=== PATIENT | female | born 1945 | race Caucasian/White ===

== ENCOUNTER 2018-02-25 11:52 | Inpatient (IN) | payer MEDICARE ==
[~2018-02-25] VITALS: Ht 154.9 cm; Wt 84.5 kg
--- NOTE | 2018-02-25 08:00 | NUR ---
RN NOTES RECEIVED BEDSIDE REPORT. PT SITTING IN BED, ALERT ORIENTED X4. NO ACUTE DISTRESS NOTED AT THIS TIME, BREATHING UNLABORED WITH 97% RA SUTURATION ,IV ACCESS PATENT AND INTACT, NO REDNESS OR SWELLING NOTED. SAFETY MEASURES IMPLEMENTED. BED IN LOWEST, LOCKED POSITION, CALL LIGHT WITHIN REACH. WILL CONTINUE MONITOR.
[~2018-02-25 11:52] MED LIST: AMLO5TAB7 PO; CLOP75TA15 PO; ENOX40DI SQ; ESOM40CA PO; FLUO10TA PO; FURO-144 PO; GABA-534 PO; HYDR1TAB PO; LOSA100T15 PO; LOSA100T3 PO; METF-440 PO; PANT40TA4 PO; PRAV20TA4 PO; PREG75CA PO
--- NOTE | 2018-02-25 12:00 | NUR ---
BBRA FROM HOME: BACK PAIN. NAUSEA. A/OX 4. BREATHING EVEN AND UNLABORED. NO SOB, NAD, VITALS STABLE. SAFETY AND COMFORT MEASURES IN PLACE. AWAITING MD ORDERS.
[2018-02-25] MEDS ORDERED: GLUCAGON,HUMAN RECOMBINANT 1 MG/VIAL VIAL ONE (12:09)
[2018-02-25] MEDS ORDERED: ONDANSETRON HCL/PF 4 MG/2 ML VIAL ONE (12:09)
[2018-02-25] MEDS ORDERED: WATER FOR INJECTION,STERILE 10 ML ONE (12:09)
--- NOTE | 2018-02-25 12:25 | NUR ---
NEW IV STARTED ON RAC, 20G. BLOOD DRAWN AND SENT TO LAB.
[2018-02-25 12:29] LABS: BASOPHILS % (AUTO) 0.7 % (0.0-2.0); HEMATOCRIT 35 % (33-45); HEMOGLOBIN 11.7 g/dL (11.5-14.8); LYMPHOCYTES # (AUTO) 1.6 /CMM (0.8-4.8); LYMPHOCYTES % (AUTO) 27.6 % (20.0-44.0); MEAN CORPUSCULAR HGB CONC 34 g/dl (31.0-36.0); MEAN CORPUSCULAR VOLUME 93 fL (82-100); MONOCYTES # (AUTO) 0.4 /CMM (0.1-1.30); NEUTROPHILS # (AUTO) 3.7 /CMM (1.8-8.9); NEUTROPHILS % (AUTO) 62.7 % (43.0-81.0); PLATELET COUNT (AUTO) 154 /CMM (150-450); RED BLOOD CELL COUNT(AUTO) 3.75 MIL/uL (4.0-5.2); WHITE BLOOD COUNT (AUTO) 5.8 K/uL (4.3-11.0)
[2018-02-25] MEDS ORDERED: GLUCAGON,HUMAN RECOMBINANT 1 MG/VIAL VIAL IV ONE (12:30)
[2018-02-25] MEDS ORDERED: ONDANSETRON HCL/PF 4 MG/2 ML VIAL IVP ONE (12:30)
[2018-02-25] MEDS ORDERED: IV NS 0.9% 500 ML BAG IV ONE (12:30)
[2018-02-25 12:42] LABS: CALCIUM, SERUM 9.4 mg/dL (8.5-10.1); CARBON DIOXIDE 27 mmol/L (21-32); CHLORIDE 106 mmol/L (98-107); CREATININE 1.4 mg/dL (0.6-1.3); GLUCOSE 100 mg/dL (74-106); POTASSIUM 5.1 mmol/L (3.5-5.1); SODIUM SERUM 142 mmol/L (136-145); UREA NITROGEN, BLOOD 31 mg/dL (7-18)
[2018-02-25 12:44] LABS: INR 0.92 (0.85-1.15)
[2018-02-25 12:48] LABS: ALANINE AMINOTRANSFERASE 20 U/L (12-78); ALBUMIN 3.9 g/dL (3.4-5.0); ALKALINE PHOSPHATASE 81 U/L (46-116); ASPARTATE AMINOTRANSFERASE 21 U/L (15-37); BILIRUBIN,DIRECT 0.1 mg/dL (0.0-0.2); BILIRUBIN,TOTAL 0.5 mg/dL (0.2-1.0); TOTAL PROTEIN, SERUM 7.5 g/dL (6.4-8.2)
[2018-02-25 12:49] LABS: TROPONIN I < 0.017 ng/mL (0.00-0.056)
--- NOTE | 2018-02-25 13:11 | NUR ---
PATIENT TAKEN TO CT VIA STRETCHER.
--- NOTE | 2018-02-25 13:22 | NUR ---
PATIENT RETURNED FROM CT.
--- NOTE | 2018-02-25 14:23 | NUR ---
MS 112-1
--- NOTE | 2018-02-25 14:32 | NUR ---
REPORT GIVEN TO OLGA SINGH FOR MARIE UPON ADIMSSION.
--- NOTE | 2018-02-25 15:15 | NUR ---
PATIENT TRANSPORTED TO [facility] VIA STRETCHER. RNSALEEM TO PROVIDE MARIE.
[2018-02-25] MEDS ORDERED: ACETAMINOPHEN 325 MG TABLET PO PRN (15:30)
[2018-02-25] MEDS ORDERED: MAG HYDROX/AL HYDROX/SIMETH 30 ML UDC PO PRN (15:30)
[2018-02-25] MEDS ORDERED: MAGNESIUM HYDROXIDE 30 ML UDC PO PRN (15:30)
[2018-02-25] MEDS ORDERED: ONDANSETRON HCL/PF 4 MG/2 ML VIAL IVP PRN (15:30)
[2018-02-25] MEDS ORDERED: HYDROCODONE/APAP 5/325MG 1 EACH TABLET PO PRN (15:30)
[2018-02-25 15:45] VITALS: BP 102/69
--- NOTE | 2018-02-25 15:45 | NUR ---
MS RN NOTES ADMITTED FROM ER REPORT GIVEN BY KAMILA VIA STRETCHER IN STABLE CONDITION.ALERT ORIENTED X 4. NO ACUTE DISTRESS NOTED. BREATHING UNLABORED. DENIED ANY PAIN. ORIENTED TO THE ROOM. SAFETY MEASURES IN PLACE. CALL LIGHT WITHIN REACH.
[2018-02-25 16:00] VITALS: BP 91/67
[2018-02-25] MEDS: GABAPENTIN 300 MG CAPSULE PO SCH (17:37)
--- NOTE | 2018-02-25 18:20 | NUR ---
MS RN CLOSING PATIENT SITTING IN BED EATING DINNER, ALERT ORIENTED X4. NO ACUTE DISTRESS NOTED. BREATHING UNLABORED. IV ACCESS PATENT AND INTACT, NO REDNESS OR SWELLING NOTED. DUE MEDICATIONS GIVEN, NO ASE NOTED. NEEDS ATTENDED AND ANTICIPATED. SAFETY MEASURES IN PLACE. CALL LIGHT WITHIN REACH. WILL CONTINUE TO MONITOR ACCORDINGLY. WILL ENDORSE TO NIGHT NURSE FOR CONTINUITY OF CARE.
[2018-02-25 20:00] VITALS: BP 107/53
[2018-02-25] MEDS ORDERED: TEMAZEPAM 15 MG CAPSULE PO PRN (22:00)
[2018-02-25] MEDS: ATORVASTATIN 10 MG TABLET PO SCH (22:24)
[2018-02-25] MEDS ORDERED: DEXTROSE 50%-WATER 50 ML DISP.SYRIN IV PRN (22:30)
[2018-02-26 04:00] VITALS: BP 119/51
[2018-02-26 04:02] VITALS: BP 119/51
[2018-02-26 07:37] LABS: BASOPHILS # (AUTO) 0.1 /CMM (0.0-0.2); BASOPHILS % (AUTO) 1.3 % (0.0-2.0); EOSINOPHILS % (AUTO) 4.9 % (0.0-6.0); HEMATOCRIT 34 % (33-45); HEMOGLOBIN 11.3 g/dL (11.5-14.8); LYMPHOCYTES # (AUTO) 1.5 /CMM (0.8-4.8); LYMPHOCYTES % (AUTO) 29.4 % (20.0-44.0); MEAN CORPUSCULAR HGB CONC 33 g/dl (31.0-36.0); MEAN CORPUSCULAR VOLUME 94 fL (82-100); MONOCYTES # (AUTO) 0.4 /CMM (0.1-1.30); MONOCYTES % (AUTO) 8.6 % (2.0-12.0); NEUTROPHILS # (AUTO) 2.8 /CMM (1.8-8.9); NEUTROPHILS % (AUTO) 55.8 % (43.0-81.0); PLATELET COUNT (AUTO) 131 /CMM (150-450); RDW COEFFICIENT OF VARIATION 13.8 (11.5-15.0); RED BLOOD CELL COUNT(AUTO) 3.64 MIL/uL (4.0-5.2)
[2018-02-26 08:05] LABS: CALCIUM, SERUM 9.2 mg/dL (8.5-10.1); CARBON DIOXIDE 25 mmol/L (21-32); CHLORIDE 107 mmol/L (98-107); CREATININE 1.1 mg/dL (0.6-1.3); GLUCOSE 90 mg/dL (74-106); MAGNESIUM 1.7 mg/dL (1.8-2.4); PHOSPHORUS 4.6 mg/dL (2.5-4.9); POTASSIUM 4.8 mmol/L (3.5-5.1); SODIUM SERUM 141 mmol/L (136-145); UREA NITROGEN, BLOOD 25 mg/dL (7-18)
[2018-02-26 08:07] LABS: CHOLESTEROL 119 mg/dL (<200); HDL CHOLESTEROL 60 mg/dL (40-60); LDL 53 mg/dL (0-99); TRIGLYCERIDES 132 mg/dL (30-150)
[2018-02-26] MEDS: Fluoxetine 10 mg capsule PO SCH (08:27)
[2018-02-26] MEDS: CLOPIDOGREL BISULFATE 75 MG TABLET PO SCH (08:27)
[2018-02-26] MEDS: PANTOPRAZOLE 40 MG TABLET.DR PO SCH (08:27)
[2018-02-26] MEDS: BLOOD SUGAR DIAGNOSTIC 1 EACH STRIP IN SCH ×4 (08:27→21:39)
[2018-02-26] MEDS: GABAPENTIN 300 MG CAPSULE PO SCH ×2 (08:27→16:29)
[2018-02-26] MEDS ORDERED: PRAVASTATIN SODIUM 20 MG TABLET PO SCH (09:00)
[2018-02-26] MEDS: HYDROCODONE/APAP 10/325MG 1 EA TABLET PO PRN ×4 (10:47→12:54)
--- NOTE | 2018-02-26 11:05 | NUR ---
pt does not have a lizarraga Addendum: 02/26/18 at 1105 by FRANCES DICKERSON RN Amended: Links added.
[2018-02-26 12:00] VITALS: BP 156/64
[2018-02-26] MEDS: Magnesium 1GM/D5W 100ML PREMIX 100 ML IV SCH ×2 (12:56→21:31)
[2018-02-26] MEDS: METFORMIN 500 MG TABLET PO SCH (18:35)
[2018-02-26] MEDS: LOSARTAN POTASSIUM 50 MG TABLET PO SCH (18:39)
--- NOTE | 2018-02-26 19:40 | NUR ---
MS RN INITIAL NOTE PT IS IN BED AWAKE AND ALERT. ABLE TO MAKE NEEDS KNOWN. NO SIGNS OF SOB OR DISTRESS, BREATHING EVENLY AND UNLABORED. IV ACCESS IS INTACT AND PATENT, NOTED FIRST IV MAG WAS NOT FINISHED, CONNECTED PT AGAIN TO CONTINUE AND CALLED FOR 2ND BAG THAT WAS NOT YET GIVEN. ENDORSED TO ME THAT PT PREFERS TO DO HER OWN ACCUCHECKS WITH HER PERSONAL MACHINE, WILL MONITOR. BED IS IN LOW AND LOCKED POSITION, CALL LIGHT WITHIN REACH. WILL CONTINUE TO MONITOR PT
[2018-02-26 20:00] VITALS: BP 102/41
[2018-02-26] MEDS: ATORVASTATIN 10 MG TABLET PO SCH (21:31)
[2018-02-26] MEDS: INSULIN REGULAR, HUMAN 100 UNIT/ML 3 ML VIAL SQ PRN (22:12)
--- NOTE | 2018-02-26 22:13 | NUR ---
MS RN NOTE CONTACTED [facility] ON-CALL, PT STATES SHE TAKES HUMULIN N NOT THE HUMULIN R THAT'S ORDERED. PER DR VILLEDA, IF PT IS REFUSING HUMULIN R THEN NO INSULIN FOR HER TONIGHT AND BE SURE TO HAVE TH ISSUE DISCUSSED WITH THE DAY MD. WILL CONTINUE TO MONITOR PT
[2018-02-27] MEDS: HYDROCODONE/APAP 10/325MG 1 EA TABLET PO PRN ×2 (02:06→12:03)
[2018-02-27 04:00] VITALS: BP 115/40
[2018-02-27 04:09] VITALS: BP 115/40
--- NOTE | 2018-02-27 06:51 | NUR ---
MS RN CLOSING NOTE PT IS IN BED SLEEPING, EASILY AROUSED. NO SIGNS OF SOB OR DISTRESS, BREATHING EVENLY AND UNLABORED ON RA. PT PREFERS TO DO HER OWN ACCU-CHECK CLOSER TO BREAKFAST TIME. NO ACUTE CHANGES THROUGHOUT THE SHIFT. ALL NEEDS WERE ANTICIPATED AND MET. BED IS IN LOW AND LOCKED POSITION, CALL LIGHT WITHIN REACH. WILL ENDORSE TO DAYSHIFT
[2018-02-27] MEDS: BLOOD SUGAR DIAGNOSTIC 1 EACH STRIP IN SCH ×4 (07:30→21:06)
--- NOTE | 2018-02-27 07:35 | NUR ---
MS RN NOTES PATIENT RECEIVED RESTING INSIDE ROOM. SLEEPING, EASILY AROUSABLE THROUGH VERBAL AND TACTILE STIMULI. BREATHING EVEN AND UNLABORED. NO SOB OR ACUTE DISTRESS NOTED AT THIS TIME. PATIENT DENIES ANY PAIN OR DISCOMFORT. SLICE CUTTING MACHINE OPERATOR HELPER SEEN PRESENT IN PATIENT ROOM TO DRAW BLOOD. PATIENT REFUSED BLOOD DRAW. RISK AND BENEFITS EXPLAINED BUT TO NO AVAIL, OFFERED X 3 BUT PATIENT STRONGLY REFUSED. PER SLICE CUTTING MACHINE OPERATOR HELPER, THEY WILL TRY AND OBTAIN AGAIN LATER TODAY. WILL CONTINUE TO MONITOR. BED LOCKED AND IN LOW POSITION. BILATERAL UPPER SIDE RAILS UP AND LOCKED. CALL LIGHT WITHIN EASY REACH
[2018-02-27 08:00] VITALS: BP 131/74
[2018-02-27] MEDS: Fluoxetine 10 mg capsule PO SCH (08:17)
[2018-02-27] MEDS: GABAPENTIN 300 MG CAPSULE PO SCH ×2 (08:17→16:28)
[2018-02-27] MEDS: LOSARTAN POTASSIUM 50 MG TABLET PO SCH (08:17)
[2018-02-27] MEDS: CLOPIDOGREL BISULFATE 75 MG TABLET PO SCH (08:18)
[2018-02-27] MEDS: METFORMIN 500 MG TABLET PO SCH ×2 (08:18→16:28)
[2018-02-27] MEDS: PANTOPRAZOLE 40 MG TABLET.DR PO SCH (08:18)
--- NOTE | 2018-02-27 08:19 | NUR ---
MS RN NOTES PATIENT REFUSED FSBS BY RN. SAID SHE WANTS TO DO FSBS BY HERSELF WITH HER OWN MACHINE. PATIENT TOOK OWN BLOOD SUGAR WITH RESULT OF 132. REFUSED TO TAKE INSULIN. RISKS AND BENEFITS EXPLAINED BUT TO NO AVAIL. OFFERED X 3, PATIENT STRONGLY REFUSED. WILL CONTINUE TO MONITOR.
[2018-02-27 12:00] VITALS: BP_SYST 115; BP_DIAS 43; BP_DIAS 53
--- NOTE | 2018-02-27 12:07 | NUR ---
MS RN NOTES PATIENT REFUSED RN TO TAKE HER BLOOD SUGAR. RISKS AND BENEFITS EXPLAINED BUT TO NO AVAIL, OFFERED X 3, STRONGLY REFUSED. PATIENT VERBALIZED SHE WILL TAKE HER OWN BLOOD SUGAR HERSELF. PATIENT DID FSBS BY HERSELF WITH RESULT OF 142 MG/DL. REFUSED TO HAVE INSULIN. WILL CONTINUE TO MONITOR
[2018-02-27 16:00] VITALS: BP 92/51
--- NOTE | 2018-02-27 17:53 | NUR ---
MS RN NOTES PATIENT REFUSED FSBS PRIOR TO DINNER. RISK AND BENEFITS EXPLAINED BUT TO NO AVAIL, OFFERED X 3, PATIENT STRONGLY REFUSED. RAJI PEOPLES NP AWARE. NO NEW ORDERS AT THIS TIME. WILL CONTINUE TO MONITOR
--- NOTE | 2018-02-27 18:24 | NUR ---
MS RN NOTES PATIENT RESTING INSIDE ROOM. AWAKE, ALERT AND ORIENTED. VERBALLY RESPONSIVE AND RESPONDS TO VERBAL AND TACTILE STIMULI. PATIENT BREATHING EVEN AND UNLABORED. NO SOB OR ACUTE DISTRESS NOTED. PATIENT AFEBRILE, SKIN DRY AND WARM TO TOUCH. NO CHANGES IN LOC NOTED AT THIS TIME. PATIENT CALM AND RELAXED. DENIES ANY PAIN OR DISCOMFORT. IV SITE ON RIGHT WRIST, NO BLEEDING OR SWELLING NOTED. PATIENT KEPT CLEAN, DRY AND COMFORTABLE. DUE MEDICATIONS GIVEN AND TOLERATED WELL. PROVIDED WITH CALM, SAFE, HAZARD-FREE ENVIRONMENT. WILL ENDORSE TO INCOMING SHIFT FOR MARIE. BED LOCKED AND IN LOW POSITION. BILATERAL UPPER SIDE RAILS UP AND LOCKED. CALL LIGHT WITHIN EASY REACH
[2018-02-27 20:00] VITALS: BP 147/65
--- NOTE | 2018-02-27 20:08 | NUR ---
MS RN INITIAL NOTE PT IS IN BED AWAKE AND ALERT. ABLE TO MAKE NEEDS KNOWN. NO SIGNS OF SOB OR DISTRESS, BREATHING EVENLY AND UNLABORED. IV ACCESS IS INTACT AND PATENT . ENDORSED TO ME THAT PT PREFERS TO DO HER OWN ACCU CHECKS WITH HER PERSONAL MACHINE, WILL MONITOR. BED IS IN LOW AND LOCKED POSITION, CALL LIGHT WITHIN REACH. WILL CONTINUE TO MONITOR PT
[2018-02-27] MEDS: ATORVASTATIN 10 MG TABLET PO SCH (21:06)
[2018-02-27] MEDS: INSULIN REGULAR, HUMAN 100 UNIT/ML 3 ML VIAL SQ PRN (21:19)
[2018-02-28] VITALS (44 sets, daily range): BP systolic 60–183; BP diastolic 38–89
--- NOTE | 2018-02-28 04:00 | NUR ---
0400 PT VS OBTAINED BY MARJORIE ROJO, BP 140/78, 106, O2 SAT 100%, TEMP 99.5 RR 18 ON NC @ 2L, NO SIGN OF FACIAL GRIMANCING NOTED OR DISTRESS NOTED. 0600 CHECKED ON PT TO ASSIST NAILING MACHINE OPERATOR AUTOMATIC TO CHANGE PT DIAPER, NOTED PT WEAK, ABLE TO OPEN EYES UPON CALLING NAME AND TOUCH, BUT IMMEDIATELY CLOSING HER EYES AND ABLE TO FOLLOW COMMAND LIKE WHEN ASKED TO SQUEEZE HAND WITH RIGHT HAND, PT ABLE TO AT THIS TIME BUT NOT WITH LEFT HAND. 0615 RECHECKED VS NOTED BP 183/89, HR 86, T 99.8, RR 20 AND BS 225. 0620 CALLED NEAL CHARGE TO FURTHER ASSESS PT. RECHECKED VS BUE, OBTAINED SAME ELEVATED VS. 0630 NEAL CHARGE NURSE CALLED RAPID RESPONSE. [address] VILLEDA TO REPORT PT CHANGE IN CONDITION, WITH ORDERS FOR STAT CT OF HEAD, ABG XR-CHEST AND EKG. [address] OF HEAD. 0715 RETURNED WITH PT. [address] ROBLEDO, REGARDING CT/HEAD RESULTS, POSITIVE FOR INFARCT AND SUGGESTED TO IMMEDIATELY CONTACTED EMBALMER APPRENTICE WHO ORDERED THE CT. [address] VILLEDA, EMBALMER APPRENTICE SERVICES STATED HE LEFT ALREADY. 07 CALLED [facility] AGAIN FOR CANDELARIA FLYNN, RELAYED CT RESULTS, HE SUGGESTED TO CALL RAJI, AND CODE STROKE IMMEDIATELY SINCE IT IS ACUTE INFARCT STATED BY DR ROBLEDO. 07 CALLED RAJI PEOPLES TO REPORT CT FINDING OF THE PT AND NOTIFIED HIM OF THE ON GOING CODE STROKE. 07 CODE STROKE CALLED AND IMMEDIATELY PROCEEDED TO TRANSFER PT TO ICU AND FOLLOW UP PT STATUS REPORT GIVEN TO ICU CHARGE NURSE.
[2018-02-28] MEDS: BLOOD SUGAR DIAGNOSTIC 1 EACH STRIP IN SCH (06:03)
--- NOTE | 2018-02-28 06:55 | NUR ---
AT 0632 A.M. NEAL BUENO,/ [facility] GREASE WORKER/ CALLED ME AND ASKED ME TO EVALUATE PT IN ROOM 112-2 BECAUSE SHE IS ACTIVATING CODE STROKE. I CAME IMMEDIATELY TO ASSESSED THE PT. PT WAS DROWSY, WITH PARTIAL FACIAL WEAKNESS, SLIGHTLY OPENS MOUTH, BUT CAN NOT PROTRUDE HER TONGUE. APHASIC, CAN NOT FOLLOW ANY COMMANDS OR MOVE EXTREMITIES. NO S/S OF RESPIRATORY DISTRESS. PT IS ON 02 5 L VIA N/C. VSS. STAT LABS, EKG, ABG AND CT OF THE HEAD WERE ORDERED AND D-R MANIFOLD BUILDER WAS NOTIFIED. AT 06.50 PT CONNECTED TO MONITOR WAS TAKEN TO CT. SCAN OF THE HEAD BY [facility] STAFF.
[2018-02-28 06:59] LABS: ABG BASE EXCESS -0.5 mmol/L; ABG OXYGEN SATURATION 98.1 % (92.0-98.5); ABG PCO2 30.9 mmHg (35.0-45.0); ABG PH 7.475 (7.350-7.450); ABG PO2 188.6 mmHg (75.0-100.0); AaDO2 32.2 mmHg; COHb 0.7 % (0.5-1.5); O2Hb 97.4 % (94.0-97.0); SITE, ABG Right Radial; VENT MODE, BG NASAL CANNULA
[2018-02-28 07:00] LABS: HEMATOCRIT 36 % (33-45); HEMOGLOBIN 11.9 g/dL (11.5-14.8); LYMPHOCYTES # (AUTO) 0.2 /CMM (0.8-4.8); LYMPHOCYTES % (AUTO) 1.4 % (20.0-44.0); MEAN CORPUSCULAR HGB CONC 34 g/dl (31.0-36.0); MEAN CORPUSCULAR VOLUME 93 fL (82-100); MONOCYTES # (AUTO) 0.2 /CMM (0.1-1.30); MONOCYTES % (AUTO) 1.1 % (2.0-12.0); NEUTROPHILS # (AUTO) 14.8 /CMM (1.8-8.9); NEUTROPHILS % (AUTO) 97.5 % (43.0-81.0); PLATELET COUNT (AUTO) 93 /CMM (150-450); RDW COEFFICIENT OF VARIATION 14.1 (11.5-15.0); RED BLOOD CELL COUNT(AUTO) 3.83 MIL/uL (4.0-5.2); WHITE BLOOD COUNT (AUTO) 15.2 K/uL (4.3-11.0)
[2018-02-28 07:11] LABS: CALCIUM, SERUM 8.9 mg/dL (8.5-10.1); CARBON DIOXIDE 23 mmol/L (21-32); CHLORIDE 99 mmol/L (98-107); CREATININE 1.3 mg/dL (0.6-1.3); GLUCOSE 293 mg/dL (74-106); POTASSIUM 4.2 mmol/L (3.5-5.1); SODIUM SERUM 134 mmol/L (136-145); UREA NITROGEN, BLOOD 29 mg/dL (7-18)
[2018-02-28 07:15] LABS: MAGNESIUM 1.4 mg/dL (1.8-2.4); PHOSPHORUS 3.8 mg/dL (2.5-4.9)
[2018-02-28 07:18] LABS: INR 1.15 (0.87-1.13)
[2018-02-28 07:19] LABS: TROPONIN I 0.233 ng/mL (0.00-0.056)
--- NOTE | 2018-02-28 07:25 | NUR ---
ICU/RN CODE STROKE ACTIVATED IN THE [facility] FLOOR ROOM 112-2.PT IS NOT RESPONSIVE,ALOC.SOB.V/S STABLE,AFEBRILE,SAT O2-96 %.RAJI EPOPLES /DEBURRING AND TOOLING MACHINE OPERATOR AT BEDSIDE.PT HAS ACUTE STROKE. PT TRANSFERRED TO ICU .
[2018-02-28 08:15] LABS: BASOPHILS % (AUTO) 0.1 % (0.0-2.0); HEMATOCRIT 37 % (33-45); HEMOGLOBIN 12.3 g/dL (11.5-14.8); INR 1.23 (0.87-1.13); LYMPHOCYTES # (AUTO) 0.2 /CMM (0.8-4.8); LYMPHOCYTES % (AUTO) 1.6 % (20.0-44.0); MEAN CORPUSCULAR HGB CONC 34 g/dl (31.0-36.0); MEAN CORPUSCULAR VOLUME 92 fL (82-100); MONOCYTES # (AUTO) 0.1 /CMM (0.1-1.30); MONOCYTES % (AUTO) 0.8 % (2.0-12.0); NEUTROPHILS # (AUTO) 14.1 /CMM (1.8-8.9); NEUTROPHILS % (AUTO) 97.5 % (43.0-81.0); PLATELET COUNT (AUTO) 83 /CMM (150-450); RDW COEFFICIENT OF VARIATION 14.1 (11.5-15.0); RED BLOOD CELL COUNT(AUTO) 3.96 MIL/uL (4.0-5.2); WHITE BLOOD COUNT (AUTO) 14.5 K/uL (4.3-11.0)
[2018-02-28 08:16] LABS: CALCIUM, SERUM 8.9 mg/dL (8.5-10.1); CARBON DIOXIDE 22 mmol/L (21-32); CHLORIDE 99 mmol/L (98-107); CREATININE 1.3 mg/dL (0.6-1.3); GLUCOSE 330 mg/dL (74-106); POTASSIUM 4.2 mmol/L (3.5-5.1); SODIUM SERUM 134 mmol/L (136-145); UREA NITROGEN, BLOOD 29 mg/dL (7-18)
--- NOTE | 2018-02-28 08:20 | NUR ---
RN NOTES 0630 PASSED BY PATIENT'S ROOM. PRIMARY RN AT BEDSIDE, UNABLE TO AROUSE PATIENT. BP ELEVATED, BS TAKEN BY KALIE 220; CALLED ANALOG IC DESIGN ARCHITECT AND ACTIVATED RAPID RESPONSE. ICU HAT BODY SORTER, ED CAME ; RT AND SUPERVISOR TELEVISION CHASSIS REPAIR. CALLED DR. DRAKE AT 0634; CT HEAD,, CXR, ABG,EKG, LABS ORDERED STAT. NIHSS SCORE 39; SWALLOW SCREEN FAILED [address] WITH PRIMARY RN AND ANALOG IC DESIGN ARCHITECT AND RETURNED AT 0715
[2018-02-28 08:29] LABS: TROPONIN I 0.245 ng/mL (0.00-0.056)
[2018-02-28] MEDS ORDERED: CT SWABBABLE VALVE TRANS SET 1 EA INFUS.SET MC ONE (08:37)
[2018-02-28] MEDS ORDERED: IV NS 0.9% 250 ML IV ONE (08:37)
[2018-02-28] MEDS ORDERED: IOHEXOL-350 100 ML VIAL IV ONE (08:37)
[2018-02-28 08:45] LABS: TRIGLYCERIDES 170 mg/dL (30-150)
--- NOTE | 2018-02-28 08:50 | NUR ---
RT PATIENT ORALLY INTUBATED BY ER DOCTOR RUPERTO. ETT 7.5 SECURED AT 23CM VIA ANCHOR FAST. POSITIVE CO2 DETECTOR COLOR CHANGE. BILAT BREATH SOUNDS HEARD. BILAT CHEST RISE NOTED. VENT SETTINGS SET PER PULMONARY DOCTOR HEYDI. VENT ALARMS CHECKED + AUDIBLE. CUFF PRESSURE CHECKED WARDROBE TECHNICIAN. AMBU BAG AT HOB Addendum: 02/28/18 at 1131 by SORAYA MONROY RT Amended: Links added.
[2018-02-28] MEDS ORDERED: MANNITOL 12.5 GM/50 ML VIAL IV ONE (09:00)
[2018-02-28] MEDS: Fluoxetine 10 mg capsule PO SCH (09:00)
[2018-02-28] MEDS ORDERED: IV Sodium Chloride 3% 500 ML 500 ML IV PRN ×2 (09:00→12:00)
[2018-02-28] MEDS: GABAPENTIN 300 MG CAPSULE PO SCH (09:00)
[2018-02-28] MEDS: METFORMIN 500 MG TABLET PO SCH (09:00)
[2018-02-28] MEDS: PANTOPRAZOLE 40 MG TABLET.DR PO SCH (09:00)
[2018-02-28] MEDS: LOSARTAN POTASSIUM 50 MG TABLET PO SCH (09:00)
[2018-02-28] MEDS: CLOPIDOGREL BISULFATE 75 MG TABLET PO SCH ×2 (09:00→09:59)
[2018-02-28 09:18] LABS: LYMPHOCYTES % (MANUAL) 2 % (16-48); MONOCYTES % (MANUAL) 3 % (0-11.0); NEUTROPHILS % (MANUAL) 95 (42-76)
[2018-02-28] MEDS ORDERED: DEXTROSE 50%-WATER 50 ML DISP.SYRIN IV PRN (09:30)
[2018-02-28] MEDS ORDERED: INSULIN REGULAR, HUMAN 100 UNIT/ML 3 ML VIAL SQ PRN (09:30)
--- NOTE | 2018-02-28 09:30 | NUR ---
INITIAL TRANSFER RN NOTE RCVD PT TRANSFERRED FROM [facility], PT NO RESPONSIVE TO VERBAL, TACTILE STIMULI WITH VITAL SIGNS STABLE. GCS AT 4. EYES OPEN WITH LATERAL GAZE OBSERVED RIGHT EYE WITH EYELID PARTIALLY CLOSED, PUPIL SLUGGISH, LEFT PUPIL BRISK. VOLUNTARY MOVEMENT OBSERVED ON RUE, BU/BL EXTREMITIES UNABLE TO OVERCOME GRAVITY. NO RESPONSE TO PAIN TO BLE. NIHSS SCALE DONE SCORE OF 23 REPORTED TO BRITTNI ALEGRIA AT BEDSIDE ASSESSING PT. RAJI COMMUNICATED WITH DR. HOLDER (TELE NEURO) WHO RECOMMENDED CTA HEAD/NECK, NO GOOD IV ACCESS AT THE TIME. PT HARD STICK. NOW PT'S SBP TRENDING DOWN. NOT STABLE FOR TRANSPORT AT THIS TIME. TRAVON SPOKE WITH DR. LEIJA FOR ACUTE ISCHEMIC STROKE SHOWN IN CT HEAD, DR. CASTILLO AND DR. STALLWORTH FOR ELEVATED TROPONIN. AT THIS TIME PT HAS BEEN INTUBATED, OFF SEDATION, HOB AT 30 DEGREES, RIGHT IJ CATHETER IN PLACE BY TOAN SÁNCHEZ DNP. PER DR. LEIJA PT TO BE TRANSFERRED TO [facility] FOR FURTHER TX. CASE MANAGEMENT AT [facility] FOR PT'S TRANSPORT. WILL CONTINUE TO MONITOR PT.
[2018-02-28] MEDS ORDERED: NOREPINEPHRINE 8 MG in IV D5W 500 ML IV PRN (09:46)
[2018-02-28] MEDS ORDERED: PANTOPRAZOLE 40 MG VIAL IV SCH (10:00)
[2018-02-28] MEDS ORDERED: IV MANNITOL 20% 250 ML in PREMIX 1 EA IV ONE ×2 (10:30→12:00)
--- NOTE | 2018-02-28 10:41 | NUR ---
DIRECTOR OF RETAIL OPERATIONS NOTE PT VITAL SIGNS STABILIZED. PT TRANSPORTED TO RADIOLOGY PER PROTOCOL FOR CTA HEAD/NECK.
[2018-02-28] MEDS: Magnesium 1GM/D5W 100ML PREMIX 100 ML IV SCH ×2 (10:52→11:45)
--- NOTE | 2018-02-28 11:28 | NUR ---
VP TREASURER NOTE RCVD CALL FROM DR. CASTRO (RADIOLOGIST) HE STATES THAT PT HAS A NEW BLEED ON CTA WITH AN INCREASED MIDLINE SHIFT TO THE LEFT (10MM). BRITTNI ALEGRIA CALLED AND RECOMMENDED TO KEEP PROCEEDING WITH TRANSFER TO HIGHER LEVEL OF CARE AND THAT HE'LL TAKE CARE OF IT. WILL CONTINUE TO MONITOR PT. Addendum: 02/28/18 at 1905 by ULYSSES FERGUSON RN ADDENDUM PER BRITTNI ALEGRIA HOLD PLAVIX DUE TO NEW BLEED SHOWN ON CTA HEAD
[2018-02-28] MEDS ORDERED: IV NS 0.9% 1,000 ML IV SCH (11:30)
[2018-02-28] MEDS ORDERED: BLOOD SUGAR DIAGNOSTIC 1 EACH STRIP IN SCH (12:00)
[2018-02-28 12:22] LABS: ABG BASE EXCESS -7.4 mmol/L; ABG OXYGEN SATURATION 97.2 % (92.0-98.5); ABG PCO2 24.6 mmHg (35.0-45.0); ABG PH 7.415 (7.350-7.450); ABG PO2 125.9 mmHg (75.0-100.0); AaDO2 274.8 mmHg; COHb 1.6 % (0.5-1.5); MetHb 0.3 % (0.0-1.5); O2Hb 95.4 % (94.0-97.0); PEEP,BG 0 cm H2O; SITE, ABG Right Radial
[2018-02-28] MEDS ORDERED: SUCCINYLCHOLINE CHLORIDE 20 MG/ML VIAL IV ONE (12:50)
[2018-02-28] MEDS ORDERED: ETOMIDATE 2 MG/ML VIAL IV ONE (12:50)
[2018-02-28] MEDS ORDERED: IV Sodium Chloride 3% 500 ML 500 ML IV ONE (13:00)
--- NOTE | 2018-02-28 13:10 | NUR ---
CUSTOM APPLICATOR NOTE REPORT CALLED TO SAMANTHA LUND AT [facility]. Addendum: 02/28/18 at 1903 by ULYSSES FERGUSON RN ADDENDUM DR. HOLDER CALLED TO LET BRITTNI ALEGRIA KNOW ABOUT CTA HEAD RESULTS. I INFORMED HIM THAT RAJI IS AWARE AND HE'S COORDINATING WITH DR. LEIJA TO TRANSFER PT TO [facility]. DR. HOLDER REQUESTED TO BE CALLED BY RAJI. DR. HOLDER'S CELL [phone] GIVEN TO RAJI TO CALL HIM BACK AND DISCUSS PT'S CARE.
--- NOTE | 2018-02-28 13:29 | NUR ---
INITIAL ECHO FINDING SHOWED ESTIMATED EF 30%. ADVISED ATTENDING NURSE (HARLEY) AND CHARGE NURSE OF PRELIMINARY RESULTS.
--- NOTE | 2018-02-28 14:51 | NUR ---
TOOL ROOM GEAR MACHINE OPERATOR NOTE REPORT GIVEN TO TOOLING MANAGER. BRITTNI ALEGRIA INFORMED OF PT'S CHANGE IN CONDITION. RIGHT PUPIL 5 LEFT PUPIL 3 FIXED. HE CALLED BRITTNI WHATLEY FOR DR. LEIJA WHO RECOMMENDED TO TRANSPORT PT UNDER CODE 3. EMS PERSONNEL INFORMED. THEY ACKNOWLEDGED. PT' BELONGINGS WERE GIVEN TO EMS STAFF. BRITTNI ALEGRIA SPOKE WITH MARILEE, PT'S SON WHO'S AWARE OF TRANSFER DUE TO PT'S CONDITION.
== END 2018-02-28 15:10 | disposition short-term general hospital (02) | DRG 673 ==
LOC: ER 11:56 → MEDSG1 15:13 → TELE-TD 02-28 06:47 → ICU 02-28 07:41
PROVIDERS: ADMIT Nurse Practitioner Acute Care; ATTEND Nurse Practitioner Acute Care
PROC: 0JHD3XZ Insertion of Tunneled Vascular Access Device into Right Upper Arm Subcutaneous Tissue and Fascia, Percutaneous Approach (ICD-10-PCS; principal; 2018-02-28)
PROC: 05HM33Z Insertion of Infusion Device into Right Internal Jugular Vein, Percutaneous Approach (ICD-10-PCS; 2018-02-28)
PROC: B543ZZA Ultrasonography of Right Jugular Veins, Guidance (ICD-10-PCS; 2018-02-28)
DX: N17.0 Acute kidney failure with tubular necrosis (principal); I21.A1 Myocardial infarction type 2; J96.00 Acute respiratory failure, unspecified whether with hypoxia or hypercapnia; G93.40 Encephalopathy, unspecified; I62.00 Nontraumatic subdural hemorrhage, unspecified; I48.91 Unspecified atrial fibrillation; E83.42 Hypomagnesemia; M84.48XA Pathological fracture, other site, initial encounter for fracture; E11.22 Type 2 diabetes mellitus with diabetic chronic kidney disease; E86.1 Hypovolemia; E87.1 Hypo-osmolality and hyponatremia; E11.42 Type 2 diabetes mellitus with diabetic polyneuropathy; T17.208A Unspecified foreign body in pharynx causing other injury, initial encounter; Z95.2 Presence of prosthetic heart valve; I12.9 Hypertensive chronic kidney disease with stage 1 through stage 4 chronic kidney disease, or unspecified chronic kidney disease; N18.9 Chronic kidney disease, unspecified; Z96.659 Presence of unspecified artificial knee joint; Z79.82 Long term (current) use of aspirin; Z79.899 Other long term (current) drug therapy; M19.90 Unspecified osteoarthritis, unspecified site; Z87.11 Personal history of peptic ulcer disease; Z86.73 Personal history of transient ischemic attack (TIA), and cerebral infarction without residual deficits; R29.6 Repeated falls; Z68.35 Body mass index [BMI] 35.0-35.9, adult; Z88.8 Allergy status to other drugs, medicaments and biological substances; Z79.84 Long term (current) use of oral hypoglycemic drugs; E78.5 Hyperlipidemia, unspecified; E66.9 Obesity, unspecified; F32.9 Major depressive disorder, single episode, unspecified; K21.9 Gastro-esophageal reflux disease without esophagitis; S80.812A Abrasion, left lower leg, initial encounter; S80.811A Abrasion, right lower leg, initial encounter; L60.3 Nail dystrophy; M85.80 Other specified disorders of bone density and structure, unspecified site; M47.816 Spondylosis without myelopathy or radiculopathy, lumbar region
CPT/HCPCS: 36415; 36569; 36600; 70450-TC; 70496-TC; 70498-TC; 71045-TC; 72100-TC; 72131-TC; 80048-TC; 80061-TC; 80076-TC; 82962-TC; 83735-TC; 83935-TC; 84100-TC; 84478-TC; 84484-TC; 85025-TC; 85610-TC; 85730-TC; 87081-TC; 93307-TC; 97110-TC; 97112-TC; 97116-TC; 97530-TC; A4216; A4606; A6402; C1751; C9113; J0330; J1610; J1815; J2150; J2405; J3475; J3490; J7030; J7040; J7050; J7060; Q9967; Z7610